=== PATIENT | male | born 1960 | race Hispanic/Latino ===

== ENCOUNTER 2021-02-28 08:28 | Inpatient (IN) | payer SELFPAY ==
[~2021-02-28] VITALS: Ht 152.4 cm; Wt 49.6 kg
[2021-02-28 09:28] LABS: HEMATOCRIT 39.3 % (39.0-50.0); HEMOGLOBIN 12.9 g/dl (14.0-18.0); IMMATURE GRANULOCYTES 0.5 % (0.0-5.0); MEAN CORPUSCULAR HGB 30.2 pG CALC (26.0-32.0); MEAN CORPUSCULAR HGB CONC 32.8 g/dL CAL (32.0-36.0); NEUT# 11.39 thou/uL (1.82-7.42); RED BLOOD COUNT 4.27 mill/uL (4.70-6.10); RED CELL DISTRI WIDTH 13.4 % (11.5-15.5)
--- NOTE | 2021-02-28 09:46 | NUR ---
IV ABT INFUSING SITE HEALTHY. PT AWARE OF CURRENT POC. CALL LIGHT IWHTJOSE AMAYA.
[2021-02-28 09:59] LABS: ALBUMIN 3.1 g/dL (3.2-5.0); ALKALINE PHOSPHATASE 78 u/l (38-126); ANION GAP 11 (6-22 (CALC)); BILIRUBIN, TOTAL 0.9 mg/dL (0.0-1.4); BUN 17 mg/dL (8-23); BUN/CREATININE RATIO 20 (12-20 (CALC)); CARBON DIOXIDE 24 mmol/l (22-30); CHLORIDE 107 mmol/l (95-108); CREATININE 0.9 mg/dL (0.7-1.3); GFR > 60 ML/MIN (>=60 (CALC)); GFR FOR AFR.AMER. > 60 ML/MIN (>=60 (CALC)); POTASSIUM 4.1 mmol/l (3.5-5.1); SGOT/AST 39 u/l (19-48); SODIUM 139 mmol/l (137-146)
--- NOTE | 2021-02-28 11:31 | NUR ---
IV ABT COMPLETED. PT ADVISED OF CURRENT POC. VSS. ASSISTED W/REPOSITIONING.
--- NOTE | 2021-02-28 12:40 | NUR ---
IV ABT INFUSING. SITE HEALTHY.
--- NOTE | 2021-02-28 14:03 | NUR ---
REPORT CALLED TO LON TRACY ON [facility] ADVISED OF ALL EVENTS, ATTACHMENTS AND MEDS.
--- NOTE | 2021-02-28 14:22 | NUR ---
PT ORIENTATED TO ROOM AT THIS TIME. PT ARRIVED VIA STRETCHER WITH YOAN SHULTZ. WITH O2 AT 2L. PT REPORTED NO PAIN AT THIS TIME. TELE MONITOR IN PLACE, CONTINOUS MONITORING BY ED. CALL LIGHT WITHIN REACH.
--- NOTE | 2021-02-28 14:25 | NUR ---
PT TO [facility] VIA STRETCHER ON TELEMETRY, O2 2L/M VIA NC. SATS 96%. IV SITE HEALTHY TO RAC.
[2021-02-28 15:00] VITALS: BP 111/58
--- NOTE | 2021-02-28 15:15 | NUR ---
ASSESSMENT AND ADMISSION QUESTIONS ALLOWED AT THIS TIME. LUNG SOUNDS CLEAR RUL AND RODRICK ANTERIORLY AND POSTERIOR. RLL, LLL AND RML CRACKLES HEARD ANTERIOR AND POSTERIOR. HEART SOUNDS ARE REGULAR. TELE MONITOR IN PLACE. BOWEL SOUNDS ACTIVE X4. RADIAL PULSE AND PEDAL PULSE STRONG. NO EDEMA, SKIN IS WDI. PT PRIMARY LANGAUAGE IS [place]. STATES THEY CAN NOT READ OR WRITE. NEVER WENT TO SCHOOL JUST WORKED ALL HIS LIFE. PT STATES NO PAIN AT THIS TIME. CALL LIGHT WITHIN REACH.
--- NOTE | 2021-02-28 16:00 | NUR ---
PT WATCHING TV AT THIS TIME. STATES NO PAIN AT THIS TIME. IV PATENT. STATES DOESNT FEEL SOB. FALL/SAFTEY PRECAUTIONS IN PLACE. CALL LIGHT WITHIN REACH
--- NOTE | 2021-02-28 18:56 | NUR ---
PT BP IN LOW 82/50. MD FELDMAN NOTIFIED. ORDERS FOR BOLUS OF NS. SENT RBVO TO [facility].
--- NOTE | 2021-02-28 19:32 | NUR ---
STAT BOLUS GIVEN BP NOW 100/69
[2021-02-28 19:39] VITALS: BP 84/49
[2021-02-28 19:51] VITALS: BP 88/57
[2021-02-28 20:00] VITALS: BP 91/57
[2021-03-01 04:07] VITALS: BP 100/52
--- NOTE | 2021-03-01 04:50 | NUR ---
PATIENT UP TO THE RESTROOM. NO ASSOITANCE REQUIRED, AMBULATES WITH STEADY GAIT
[2021-03-01 05:35] LABS: HEMATOCRIT 36.9 % (39.0-50.0); HEMOGLOBIN 12.1 g/dl (14.0-18.0); MEAN CELL VOLUME 92.5 fL CALC (80.0-100.0); MEAN CORPUSCULAR HGB 30.3 pG CALC (26.0-32.0); MEAN CORPUSCULAR HGB CONC 32.8 g/dL CAL (32.0-36.0); RED BLOOD COUNT 3.99 mill/uL (4.70-6.10); RED CELL DISTRI WIDTH 13.5 % (11.5-15.5)
[2021-03-01 05:47] LABS: ANION GAP 11 (6-22 (CALC)); BUN 21 mg/dL (8-23); BUN/CREATININE RATIO 33 (12-20 (CALC)); CARBON DIOXIDE 22 mmol/l (22-30); CHLORIDE 109 mmol/l (95-108); CREATININE 0.6 mg/dL (0.7-1.3); GFR > 60 ML/MIN (>=60 (CALC)); GFR FOR AFR.AMER. > 60 ML/MIN (>=60 (CALC)); MAGNESIUM 1.9 mg/dL (1.6-2.3); POTASSIUM 4.7 mmol/l (3.5-5.1); SODIUM 137 mmol/l (137-146)
[2021-03-01 08:00] VITALS: BP 113/61
--- NOTE | 2021-03-01 08:00 | NUR ---
PT AWAKE AND ALERT AT THIS TIME. STATES NO PAIN. ASSESSMENT AND VITALS ALLOWED AT THIS TIME. BREATHING IS EVEN AND UNLABORED. RUL&RODRICK CLEAR ANTERIOR AND POSTERIOR. RLL AND LLL CRACKLES HEARD UPON AUSCULATION ANTERIOR AND POSTERIOR. HEART SOUNDS REGULAR. TELE MONITOR IN PLACE, CONTINOUS MONITORING BY ED. BOWEL SOUNDS ACTIVE X4. RADIAL AND PEDAL PULSE STRONG. SKIN WDI. IV SITE DSLODGED IN LFA 20G. NEW IV SITE WILL BE ESTABLISHED. FALL/SAFTEY PRECAUTIONS IN PLACE. CALL LIGHT WITHIN REACH.
--- NOTE | 2021-03-01 09:50 | NUR ---
NEW IV SITE ESTABLISHED IN LFA 22G. FLUSHED [facility] BLOOD RETURN BY ROB MULTANI. PT TOLERATED WELL. CALL LIGHT WITHIN REACH
[2021-03-01 10:55] VITALS: BP 102/58
--- NOTE | 2021-03-01 11:26 | NUR ---
PT NOW ON 8L NC VIA HIGHFLOW. STATES NO FEELING OF SOB. PT VERY RELAXED AND CALM.
--- NOTE | 2021-03-01 13:24 | NUR ---
PT WATCHING TV AT THIS TIME. SPO2 @95 WITH O2 @10L VIA NC HIGHFLOW. LOWERED O2 TO 9L PER NC PT STAYED BETWEEN 94-95% STATES NO PAIN AT THIS TIME. IV 22G LFA PATENT. FALL/SAFTEY PRECAUTIONS WITHIN REACH. CALL LIGHT WITHIN REACH
[2021-03-01 14:53] VITALS: BP 111/62
--- NOTE | 2021-03-01 16:06 | NUR ---
PT SLEEPING AT THIS TIME. NO DISTRESS NOTED. TELE MONITOR IN PLACE, CONTINOUS MONITORING BY ED. IV PATENT. O2 @ 9L VIA NC HIGHFLOW DUE TO PT HYPOXEMIA. FALL/SAFTEY PRECAUTIONS IN PLACE. CALL LIGHT WITHIN REACH.
--- NOTE | 2021-03-01 17:08 | NUR ---
LOWERED PT O2 TO 5L VIA NC HIGHFLOW SUSTAINING SPO2 OF 94-95% REPORTS NO PAIN. TELE MONITOR IN PLACE. IV PATENT. STATES NO OTHER NEEDS AT THIS TIME FALL/SAFTEY PRECAUTIONS IN PLACE. CALL LIGHT WITHIN REACH.
--- NOTE | 2021-03-01 18:34 | NUR ---
REASSESSED PT SPO2 AT THE O2@5L VIA NC HIGHFLOW. PT RANGING 88-89. BUMPED UP TO 6L NOW SPO2 RANGING 93-94%. PT RESTING IN BED. STATES NO OTHER NEEDS AT THIS TIME. CALL LIGHT WITHIN REACH
[2021-03-01 19:00] VITALS: BP 112/63
--- NOTE | 2021-03-01 20:00 | NUR ---
PATIENT ALERT ORINETED BAHAMIAN SPEAKING ONLY WITH SALINE LOCK ON LFA G22 PATENT FLUSHES WELL, ON TELEMETRY SR66, DENIES PAIN OR DISCOMFORTS, LUNG SOUNDS CLEAR/CRACKLES. PATIENTY BAHAMIAN SPEAKING ONLY PATIENT ON O2 @ 6LPM SPO2 @ 86 % RAINSED O2 @ 8LPM AT THIS TIME SPO2 AT 92-93%, WILL CONTINUE TO MONOITOR.
[2021-03-02] VITALS: BP 108/64
--- NOTE | 2021-03-02 00:19 | NUR ---
PATIENT RESTING IN BED, EYES CLOSED, CALL LIGHT AT REACH, PATIENT STILL ON 8LPM VIA NC SPO2 92%.
[2021-03-02 03:53] VITALS: BP 111/59
--- NOTE | 2021-03-02 04:21 | NUR ---
PATIENT APPEARS TO BE SLEEPING EASY TO AWAKEN, REMAINS ON O2 @ 8LPM HIGHFLOW, COMFORTABLE AT THIUS TIME, BREATHING UNLABORED, CALL LIGHT AT REACH.
[2021-03-02 05:41] LABS: HEMATOCRIT 39.4 % (39.0-50.0); MEAN CELL VOLUME 91.4 fL CALC (80.0-100.0); MEAN CORPUSCULAR HGB 30.2 pG CALC (26.0-32.0); RED BLOOD COUNT 4.31 mill/uL (4.70-6.10); RED CELL DISTRI WIDTH 13.3 % (11.5-15.5)
[2021-03-02 05:57] LABS: ANION GAP 12 (6-22 (CALC)); BUN 12 mg/dL (8-23); BUN/CREATININE RATIO 17 (12-20 (CALC)); CARBON DIOXIDE 23 mmol/l (22-30); CHLORIDE 103 mmol/l (95-108); CREATININE 0.7 mg/dL (0.7-1.3); GFR > 60 ML/MIN (>=60 (CALC)); GFR FOR AFR.AMER. > 60 ML/MIN (>=60 (CALC)); MAGNESIUM 1.6 mg/dL (1.6-2.3); POTASSIUM 4.5 mmol/l (3.5-5.1); SODIUM 133 mmol/l (137-146)
[2021-03-02 07:54] VITALS: BP 126/71
--- NOTE | 2021-03-02 09:00 | NUR ---
PT SITTING IN BED. A&O X3. NO DISTRESS NOTED. O2 VIA HF @8L IN PLACE. O2 SUSTAINING 96%. O2 TITRATED DOWN TO 4L; PT CURRENTLY TOLERATING WELL SUSTAINING 91-93%; O2 TO BE MONITORED FOR OXYGEN TITRATION NEEDS. CLEAR BREATH SOUNDS UPON AUSCULTATION. PT REPORTS IMPROVEMENT WITH BREATHING AND SOB. IS DEVICE GIVEN; PT EDUCATED ON HOW TO PROPERLY USE DEVICE AND ITS BENEFITS; CURRENTLY ACHIEVING 1000 ML/HR; PT ENCOURAGED TO USE IS DEVICE Q1HR WHILE AWAKE. PT VERBALIZED AND DEMONSTRATED UNDERSTANDING. ACTIVE BOWEL SOUNDS X4 QUADRANTS. #22G RFA HEALTHY AND PATENT. ABX INITIATED AT THIS TIME. ASSESSMENT COMPLETED. DISCUSSED POC. CALL LIGHT WITHIN REACH.
--- NOTE | 2021-03-02 09:35 | NUR ---
DR MILLS AND Bryn MCKEON APRN AT BEDSIDE DISCUSSING POC
--- NOTE | 2021-03-02 10:42 | NUR ---
PT UPDATED ON POC; FRIEND AT BEDSIDE ALSO UPDATED. NO OTHER NEEDS AT THIS TIME. CALL LIGHT WITHIN REACH.
[2021-03-02 10:45] VITALS: BP 94/53
[2021-03-02 15:00] VITALS: BP 99/57
--- NOTE | 2021-03-02 17:47 | NUR ---
PT SITTING ON THE SIDE OF THE BED EATING DINNER. NO NEEDS AT THIS TIME. O2 VIA HF @6L. CALL LIGHT WITHIN REACH.
[2021-03-02 19:00] VITALS: BP 112/61
--- NOTE | 2021-03-02 19:30 | NUR ---
REPORT FROM MURALI MILTON. ASSUMED PT CARE.
--- NOTE | 2021-03-02 19:55 | NUR ---
PT NOTED RESTING IN BED WATCHING TV. NO APPARENT DISTRESS NOTED. RESPIRATIONS EVEN AND UNLABORED. O2 @ 6L/M VIA HIGHFLOW. PT DENIES ANY PAIN OR SOB. CALL LIGHT WITHIN REACH. WILL CONTINUE TO MONITOR.
--- NOTE | 2021-03-02 21:36 | NUR ---
PT MEDICATED ORDERED. NO APPARENT DISTRESS NOTED. O2 SAT 93% ON 6L/M VIA HIGHFLOW. PT DENIES ANY PAIN OR SOB. CALL LIGHT WITHIN REACH. WILL CONTINUE TO MONITOR.
--- NOTE | 2021-03-03 00:36 | NUR ---
PT RESTING IN BED WITH EYES CLOSED. NO APPARENT DISTRESS NOTED. RESPIRATIONS EVEN AND UNLABORED. CALL LIGHT WITHIN REACH. WILL CONTINUE TO MONITOR.
[2021-03-03 04:00] VITALS: BP 119/59
--- NOTE | 2021-03-03 04:01 | NUR ---
PT RESTING IN BED WITH EYES CLOSED. NO APPARENT DISTRESS NOTED. RESPIRATIONS EVEN AND UNLABORED. PT REMAINS ON 6L/M VIA HIGHFLOW. CALL LIGHT WITHIN REACH. WILL CONTINUE TO MONITOR.
[2021-03-03 05:48] LABS: HEMATOCRIT 38.5 % (39.0-50.0); HEMOGLOBIN 12.7 g/dl (14.0-18.0); MEAN CELL VOLUME 91.7 fL CALC (80.0-100.0); MEAN CORPUSCULAR HGB 30.2 pG CALC (26.0-32.0); RED BLOOD COUNT 4.2 mill/uL (4.70-6.10); RED CELL DISTRI WIDTH 13.3 % (11.5-15.5)
[2021-03-03 06:10] LABS: ANION GAP 11 (6-22 (CALC)); BUN 15 mg/dL (8-23); BUN/CREATININE RATIO 17 (12-20 (CALC)); CARBON DIOXIDE 25 mmol/l (22-30); CHLORIDE 104 mmol/l (95-108); CREATININE 0.9 mg/dL (0.7-1.3); GFR > 60 ML/MIN (>=60 (CALC)); GFR FOR AFR.AMER. > 60 ML/MIN (>=60 (CALC)); MAGNESIUM 1.8 mg/dL (1.6-2.3); POTASSIUM 4.8 mmol/l (3.5-5.1); SODIUM 135 mmol/l (137-146)
--- NOTE | 2021-03-03 06:15 | NUR ---
CURRENT O2 SAT 98% ON 6L/M VIA HIGH FLOW. NO APPARENT DISTRESS NOTED. TITRATED DOWN TO 4L/M AT THIS TIME. WILL CONTINUE TO MONITOR.
[2021-03-03 07:24] VITALS: BP 111/63
--- NOTE | 2021-03-03 07:24 | NUR ---
PT SITTING IN BED. A&O X3. PRIMAIRLY SPANSIH SPEAKING. O2 VIA HF @6L IN PLACE. PT REEDUCATED ON THE NEED TO KEEP ON O2 O2 VIA RA IS STILL LOW. PT ENCOURAGED TO CALL STAFF WHEN WANTING TO USE RESTROOM SO PORTABLE O2 IS TAKEN WITH PT; PT VERBALIZED UNDERSTANDING. CLEAR BREATH SOUNDS HEARD IN BILATERAL UPPER LOBES; CRACKLES HEARD IN BILATERAL LOWER. ACTIVE BOWEL SOUNDS X4 QUADRANTS. IS DEVICE AT BEDSIDE PT DEMONSTRATING PROPER USE OF DEVICE; ENCOURAGED TO KEEP USING Q1HR WHILE AWAKE. IV TO BE CHANGED PT C/O OF BURNING WHEN FLUSHED. ASSESSMENT COMPLETED. DISCUSSED POC. CALL LIGHT WITHIN REACH.
--- NOTE | 2021-03-03 09:09 | NUR ---
NEW IV INITIATED AT THIS TIME X1 ATTEMPT BY THIS PANEL RAISER OPERATOR. #20G RFA HEALTHY AND PATENT. #22G LFA REMOVED; INTACT UPON REMOVAL. AZITHROMYCIN INITITED AT THIS TIME. CALL LIGHT WITHIN REACH.
--- NOTE | 2021-03-03 09:12 | NUR ---
DR MILLS AND Bryn MCKEON APRN AT BEDSIDE DISCUSSING POC
--- NOTE | 2021-03-03 10:05 | NUR ---
IV LASIX GIVEN PER MAR ORDER; PT EDUCATED ON MEDICATION PRIOR TO ADMINISTRATION. URINAL GIVEN TO PT; PT ENCOURAGED TO USE URINAL TO KEEP O2 IN PLACE AND ALSO FOR ACCURATE I&O, PT VERBALIZED UNDERSTANDING. CALL LIGHT WITHIN REACH.
--- NOTE | 2021-03-03 10:09 | NUR ---
PT SITTING UP IN THE CHAIR. IV LASIX ADMINISTERED. PT INSTRUCTED TO USE URINAL TO ACCURATELY MEASURE I&O. PT VERBALIZED UNDERSTANDING. CALL LIGHT WITHIN REACH.
[2021-03-03 15:55] VITALS: BP 101/57
[2021-03-03 19:00] VITALS: BP 112/65
--- NOTE | 2021-03-03 19:00 | NUR ---
REPORT RECEIVED FROM DAYSHIFT NURSE VIA SBAR FORMAT. FOUND PATIENT RESTING IN BED, NO PAIN OR NEEDS REPORTED, C/O PRODUCTIVE COUGH, WITH WHITE SPUTUM, PATIENT HAS GUAIFENESIN ORAL, NOT DUE YET, EDUCATED ABOUT MEDICATION SCHEDULE, VOICES UNDERSTANDING, WILL GIVE IT AT 2200. NO OTHER NEEDS REPORTED, CALL [facility] AT REACH, ON 4L OF O2 VIA NC, HIGH FLOW. PT DEMOSTRATED HOW TO USE CALL [facility]. WILL FOLLOW UP WITH FREQUENTLY ROUNDINGS.
--- NOTE | 2021-03-03 21:13 | NUR ---
PT RESTING IN BED, AWAKE, COUGH SPELLS OF PRODUCTIVE COUGH, WHITE SPUTUM NOTED, EMESIS BAD PROVIDED FOR SPUTUM, WILL FOLLOW UP WITH COUGH MEDICATION AT DUE TIME. CALL [facility] AT REACH. PROVIDED FRESH WATER PER REQUEST.
--- NOTE | 2021-03-03 22:03 | NUR ---
ROBITUSSIN GIVEN AT THIS TIME FOR COUGHING SPELLS, WILL FOLLOW UP WITH REASSESSMENT. CALL [facility] AT REACH.
--- NOTE | 2021-03-04 02:05 | NUR ---
PT IS RESTING IN BED, PRODUCTIVE COUGH REPORTED, MEDICATED WITH ROBITUSSIN ORAL PER EMAR ORDERS, RESP ARE EVEN AND UNLABORED AT THIS TIME ON 4L O2 NC, NO OTHER NEEDS VOICED; ENCOURAGED TO CALL IF NEEDED, VOICES UNDERSTADING. CALL [facility] AT REACH.
[2021-03-04 04:00] VITALS: BP 105/56
--- NOTE | 2021-03-04 05:30 | NUR ---
PATIENT UP TO BRP TO BRUSH HIS TEETH, PATIENT KEPT O2 ON 4L VIA NC AT ALL TIMES, USED PORTABLE OXYGEN TANK. TOLERATED ACTIVITY WELL, ASSISTED BACK TO BED SAFELY.
--- NOTE | 2021-03-04 05:56 | NUR ---
PT C/O COUGHING SPELLS, REQUESTING COUGH MEDICATION, MEDICATED WITH ROBITUSSING ORAL PER EMAR ORDERS, NO OTHER NEEDS VOICED, NO S/S OF DISTRESS, COUGHING SPELLS NOTED.
[2021-03-04 06:44] LABS: HEMATOCRIT 39.4 % (39.0-50.0); HEMOGLOBIN 13.2 g/dl (14.0-18.0); MEAN CELL VOLUME 90.4 fL CALC (80.0-100.0); MEAN CORPUSCULAR HGB 30.3 pG CALC (26.0-32.0); MEAN CORPUSCULAR HGB CONC 33.5 g/dL CAL (32.0-36.0); RED BLOOD COUNT 4.36 mill/uL (4.70-6.10); RED CELL DISTRI WIDTH 13.1 % (11.5-15.5)
[2021-03-04 06:54] LABS: ANION GAP 13 (6-22 (CALC)); BUN 17 mg/dL (8-23); BUN/CREATININE RATIO 23 (12-20 (CALC)); CARBON DIOXIDE 23 mmol/l (22-30); CHLORIDE 106 mmol/l (95-108); CREATININE 0.7 mg/dL (0.7-1.3); GFR > 60 ML/MIN (>=60 (CALC)); GFR FOR AFR.AMER. > 60 ML/MIN (>=60 (CALC)); POTASSIUM 4.7 mmol/l (3.5-5.1); SODIUM 137 mmol/l (137-146)
[2021-03-04 07:24] VITALS: BP 94/58
--- NOTE | 2021-03-04 07:24 | NUR ---
PT LAYING IN BED. A&O X3. PRIMAIRLY GRENADIAN SPEAKING. NO DISTRESS NOTED. O2 VIA NC @4L IN PLACE; PT SUSTAINING 98% O2 TITRATED DOWN TO 3L AND CHANGED FROM HIGH FLOW TO REGULAR NC. O2 TO BE MONITORED FOR TITRATION NEEDS. CLEAR BREATH SOUNDS HEARD ON UPPER LOBES; CRACKLES/WHEEZES HEARD ON BILATERAL LOWER. ACTIVE BOWEL SOUNDS X4 QUADRANTS. 300 CC OF CLEAR YELLOW URINE NOTED IN URINAL . IV HEALTHY AND PATENT. ASSESSMENT COMPLETED. DISCUSSED POC. CALL LIGHT WITHIN REACH.
--- NOTE | 2021-03-04 13:43 | NUR ---
PT LAYING IN BED. O2 VIA NC @3L IN PLACE REMAINS UNCHANGED. NO OTHER NEEDS AT THIS TIME. CALL LIGHT WITHIN REACH.
--- NOTE | 2021-03-04 17:29 | NUR ---
PT SITTING IN RECLINER. O2 TITRATED DOWN FROM 3L TO 1L SUSTAINING 91-93%. NO OTHER NEEDS AT THIS TIME CALL LIGHT WITHIN REACH.
--- NOTE | 2021-03-04 18:50 | NUR ---
REPORT RECEIVED FROM Ortiz HINES RN
[2021-03-04 19:00] VITALS: BP 103/54
--- NOTE | 2021-03-04 20:40 | NUR ---
ASSEMENT COMPLETED AT THIS TIME, MEDICATIONS ADMINISTERED PER EMAR. SEE EMAR.
--- NOTE | 2021-03-05 00:45 | NUR ---
PT UP TO THE RESTROOM AT THIS TIME. REMOVED OXYGEN, ADVISED PT TO KEEP OXYGEN ON. PT OXYGEN SATURATION 92% ON ROOM AIR. ASSISTED PT BACK INTO BED. CALL LIGHT AND BEDSIDE TABLE PLACED WITHIN REACH.
[2021-03-05 04:00] VITALS: BP 119/68
--- NOTE | 2021-03-05 04:45 | NUR ---
LAB IN TO DRAW AM LABS AT THIS TIME. PT TOLERATED WELL. NO APPARENT DISTRESS CALL LIGHT AND BEDSIDE TABLE WITHIN REACH.
[2021-03-05 06:23] LABS: HEMOGLOBIN 13.3 g/dl (14.0-18.0); MEAN CELL VOLUME 92.3 fL CALC (80.0-100.0); MEAN CORPUSCULAR HGB CONC 32.4 g/dL CAL (32.0-36.0); RED BLOOD COUNT 4.44 mill/uL (4.70-6.10); RED CELL DISTRI WIDTH 13.2 % (11.5-15.5)
[2021-03-05 06:49] LABS: ANION GAP 11 (6-22 (CALC)); BUN 19 mg/dL (8-23); BUN/CREATININE RATIO 25 (12-20 (CALC)); CARBON DIOXIDE 24 mmol/l (22-30); CHLORIDE 106 mmol/l (95-108); CREATININE 0.7 mg/dL (0.7-1.3); GFR > 60 ML/MIN (>=60 (CALC)); GFR FOR AFR.AMER. > 60 ML/MIN (>=60 (CALC)); POTASSIUM 4.8 mmol/l (3.5-5.1); SODIUM 137 mmol/l (137-146)
[2021-03-05 07:00] VITALS: BP 98/58
--- NOTE | 2021-03-05 08:00 | NUR ---
AM ASSESSMENT COMPLETED WITH Lul DANIEL RN. WILL CONTINUE TO MONITOR.
--- NOTE | 2021-03-05 14:36 | NUR ---
Discharge instructions given. Patient verbalizes understanding of same. Discharged in stable condition via Wheelchair to Home with staff. All belongings sent with pt.
== END 2021-03-05 14:36 | disposition home or self-care (01) | DRG 193 ==
LOC: ED 08:28 → ED-I 10:00 → ED 10:26 → MS2 10:27
PROVIDERS: Family Medicine; Nurse Practitioner; ADMIT Hospitalist; ATTEND Hospitalist
DX: J18.9 Pneumonia, unspecified organism (principal); J96.01 Acute respiratory failure with hypoxia; Z20.822 Contact with and (suspected) exposure to COVID-19
CPT/HCPCS: J1650